=== PATIENT | female | born 2000 | race African-American/Black ===

== ENCOUNTER 2022-10-06 22:44 | Emergency (ER) | payer OTHER ==
[2022-10-06] MEDS ORDERED: CYCLOBENZAPRINE HCL 10 MG TABLET (FP) PO ONE (22:53)
[2022-10-06] MEDS ORDERED: KETOROLAC TROMETHAMINE 60 MG/2 ML VIAL IM ONE (22:53)
[2022-10-06 23:01] VITALS: RESP 18; BMI 36.9
[2022-10-06] MEDS ORDERED: CYCLOBENZAPRINE HCL 5 MG TABLET ONE (23:06)
[2022-10-06 23:12] VITALS: BP 123/75; PULSE 75; TEMP 98
== END 2022-10-07 00:15 | disposition home or self-care (01) ==
LOC: FER 22:44
PROC: 3E023GC Introduction of Other Therapeutic Substance into Muscle, Percutaneous Approach (ICD-10-PCS; principal; 2022-10-06)
DX: S39.012A Strain of muscle, fascia and tendon of lower back, initial encounter (principal); V49.50XA Passenger injured in collision with unspecified motor vehicles in traffic accident, initial encounter
CPT/HCPCS: 72070-TC-FY; 72100-TC-FY; 99284-25